=== PATIENT | male | born 1975 | race African-American/Black ===

== ENCOUNTER 2016-12-23 01:59 | Emergency (ER) | payer OTHER ==
[~2016-12-23] VITALS: Ht 175.3 cm; Wt 107.6 kg
[2016-12-23 02:07] VITALS: Ht 175.3 cm; Wt 107.6 kg
--- NOTE | 2016-12-23 03:06 | ERA ---
ER Documentation Chief Complaint Date/Time DATE: 12/23/16 TIME: 03:05 Chief Complaint states can't sleep HPI The patient is a 41-year-old male, presenting to the ER because of insomnia, anxiety. He denies auditory, visual hallucination, homicidal, suicidal ideation. He denies neck pain, chest pain, dyspnea, abdominal pain, vomiting, diarrhea, constipation ; he does not smoke, drink or do illegal Past medical history: Hypertension, anxiety, schizophrenia Past surgical history: None ROS All systems reviewed and are negative except as per history of present illness. Medications Home Meds Reported Medications [none] No Conflict Check 06/12/13 Allergies Allergies: Coded Allergies: No Known Allergies (Verified Allergy, Unknown, 12/23/16) PMhx/Soc Medical and Surgical Hx: pt denies Surgical Hx History of Surgery: No Hx Neurological Disorder: No Hx Respiratory Disorders: No Hx Cardiac Disorders: Yes (HTN) Hx Psychiatric Problems: Yes (DEPRESSION, ANXIETY) Hx Miscellaneous Medical Probl: Yes (ABDOMINAL CYST) Hx Alcohol Use: Yes (OCCASSIONAL) Hx Substance Use: No Hx Tobacco Use: No Smoking Status: Never smoker Physical Exam Vitals Vital Signs Date Time Temp Pulse Resp B/P Pulse Ox O2 Delivery O2 Flow Rate FiO2 12/23/16 05:00 98.5 95 18 163/94 95 Room Air 12/23/16 02:49 98.6 102 20 180/100 98 Room Air 12/23/16 02:07 98.7 101 20 185/90 97 Physical Exam Const: No acute distress. Head: Atraumatic. Eyes: Normal Conjunctiva. ENT: Normal External Ears, Nose and Mouth. Neck: Full range of motion. No meningismus. Resp: Clear to auscultation bilaterally. Cardio: Regular rate and rhythm, no murmurs. Abd: Soft, non distended, normal bowel sounds, non tender. Skin: No petechiae or rashes. Back: No midline or flank tenderness. Ext: No cyanosis, or edema. Neur: Awake and alert. No focal deficit Psych: Anxious. Procedures/MDM MEDICAL MAKING DECISION: The patient is a 41-year-old male, presenting with acute anxiety, chronic insomnia. The differential diagnoses considered include but are not limited to decompensated psychiatric illness, anxiety attack, panic attack Departure Diagnosis: Primary Impression: Acute anxiety Condition: Good Comments I discussed the findings with the patient. I advised the patient to follow-up with the primary physician in about 1-2 days, sooner if needed and return if any concern. ALISHA YOO MD Dec 23, 2016 03:06
--- NOTE | 2016-12-23 03:31 | RADRPT ---
PROCEDURE: CHEST - 1 VIEW CLINICAL INDICATION: 41-year-old male with cough. TECHNIQUE: A single frontal semi-upright view of the chest was performed portably. The images wer e reviewed on a PACS workstation. COMPARISON: None. FINDINGS: The cardiomediastinal silhouette is within normal limits. There is a shallow inspiration. There is no evidence for an infiltrate. There is no evidence for congestive heart failure. There is no evid ence for pneumothorax. The osseous structures are intact. IMPRESSION: No evidence for active cardiopulmonary disease. .Garrett Curry MD, MD Date Time Electronically viewed and signed by .Garrett Curry MD, on 12/23/2016 03:31 .Deon/
[2016-12-23 05:00] VITALS: BP 163/94; PULSE 95; RESP 18; TEMP 98.5
== END 2016-12-23 05:02 | disposition home or self-care (01) ==
LOC: E/R 01:59
DX: F41.9 Anxiety disorder, unspecified (principal); I10 Essential (primary) hypertension
CPT/HCPCS: 71010; Z7502

== ENCOUNTER 2017-01-17 10:55 | Inpatient (IN) | payer OTHER ==
--- NOTE | 2017-01-16 15:23 | HP ---
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 He presents to the hospital a very large spindle cell tumor, CD34 positive. He will require large local excision. Both the patient and the patient's brother understand the risk of surgery to include but not exclusive to: Bleeding, infection, drain placement, split-thickness skin graft, excision of abdominal wall, repeat surgery, recurrent tumor mass, neuropathy, disfiguring scar. They request to proceed with excision of abdominal wall mass. HPI/ROS Admit Date/Time Admit Date/Time 01/16/17 Hx of Present Illness This is a 41-year-old gentleman. He is mentally retarded. He lives with his brother. According to his brother's account the patient approximately 2-1/2 years ago started developing a mass on his abdominal wall. It was excised partially at that time. The patient was lost to follow-up. He was reevaluated and a biopsy was obtained. The biopsy was positive for spindle cell CD34 tumor. The patient was scheduled for an excisional of the mass but the case was canceled. The patient initially followed up in our clinic in June 2016. His surgery was delayed due to need for hypertension control. A CT scan performed in August 2016 notes the abdominal wall mass. It does not appear to extend into the muscles of the abdominal wall. There is no lymphadenopathy noted. The pathology results and the biopsy are dated February 2016 which noted a spindle cell proliferation. Immunostain showed tumor cells are positive for CD34, focal positive for CD68, CD 163, and factor XIII A. 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 The patient and his brother have had the surgery discussed with them. They understand that this would require a large excision. The recurrence risk is high. That he may return to the operating room for excision of positive margins. Possible excision of portion of abdominal wall with repair with mesh. Possible split-thickness skin graft. Possible wound VAC placement. Other risks include infection, bleeding, chronic pain syndrome. The patient will have a disfiguring scar. All question answered the patient and family request to proceed. ROS Hypertension No SOB, no chest pain Nl gait Constitutional: no complaints Eyes: no complaints ENT: no complaints Respiratory: no complaints Cardiovascular: no complaints Gastrointestinal: no complaints Musculoskeletal: no complaints Skin: other (see HPI) Psychological: no complaints Exam/Review of Systems Exam Constitutional: alert, oriented, well developed (mild obesity) Psych: no complaints Head: atraumatic, normocephalic Eyes: EOMI, nl conjunctiva ENMT: nl external ears & nose Neck: supple Respiratory: clear to auscultation, normal air movement Cardiovascular: regular rate and rhythm Gastrointestinal: other (tumor growth 17 x 9 cm), soft Musculoskeletal: nl extremities to inspection Extremities: normal pulses Neurological: LEAD BURNER II-XII intact, nl mental status (mentally delayed) BASILIA WALDEN M.D. Jan 16, 2017 15:18
[2017-01-17] VITALS (24 sets, daily range): BP systolic 111–170; BP diastolic 71–110; PULSE 54–79; RESP 7–24; Ht 175.3 cm; Wt 102.0 kg
[~2017-01-17] VITALS: Ht 175.3 cm; Wt 102.0 kg
[~2017-01-17 10:55] MED LIST: CEFAZOLIN 1 GM INJ ONE; DESFLURANE 15 MIN ONE; ONDANSETRON 4 MG INJ ONE
[2017-01-17] MEDS ORDERED: CEFAZOLIN 2 GM/50 ML (PMX) 50 ML IVPB ONE (11:00)
[2017-01-17] MEDS ORDERED: UNKOWN HTN RX (11:40)
[2017-01-17 12:22] LABS: ADD SCAN DIFF NO
[2017-01-17 12:26] LABS: BASOPHILS % 0.6 % (0.0-2.0); EOSINOPHILS # 0.2 10^3/ul (0.0-0.5); EOSINOPHILS % 3.3 % (0.0-7.0); HEMOGLOBIN 13.1 g/dl (14.0-18.0); LYMPHOCYTES # 1.4 10^3/ul (0.8-2.9); LYMPHOCYTES % 19.8 % (15.0-51.0); MEAN CORPUSCULAR HEMOGLOBIN 27.7 pg (29.0-33.0); MEAN CORPUSCULAR VOLUME 86.7 fl (82.0-101.0); MEAN PLATELET VOLUME 11.3 fl (7.4-10.4); MONOCYTE # 0.5 10^3/ul (0.3-0.9); MONOCYTES % 7.6 % (0.0-11.0); NEUTROPHIL # 4.7 10^3/ul (1.6-7.5); NEUTROPHILS % 68.4 % (39.0-77.0); PLATELET COUNT 259 10^3/UL (140-415); RED BLOOD COUNT 4.73 10^6/ul (4.70-6.10); RED CELL DISTRIBUTION WIDTH 14.6 % (11.5-14.5); WHITE BLOOD COUNT 6.9 10^3/ul (4.8-10.8)
[2017-01-17] MEDS ORDERED: MINERAL OIL LIGHT 10 ML VIAL ONE (12:32)
[2017-01-17 12:44] LABS: ALBUMIN 4.2 g/dl (3.3-4.9)
[2017-01-17 12:46] LABS: POTASSIUM 4.1 mmol/L (3.5-5.1)
[2017-01-17 12:47] LABS: ALBUMIN/GLOBULIN RATIO 1.1; BILIRUBIN,INDIRECT 0.7 mg/dl (0-1.1); BILIRUBIN,TOTAL 0.7 mg/dl (0.2-1.3)
[2017-01-17 12:55] LABS: CALCIUM 9.1 mg/dl (8.4-10.2); CREATININE 0.97 mg/dl (0.61-1.24)
[2017-01-17] MEDS ORDERED: MEPERIDINE 25 MG INJ IV PRN (13:00)
[2017-01-17] MEDS ORDERED: HYDROmorphONE (0.2 MG/ML) 10ML SYG IV PRN ×2 (13:00)
[2017-01-17] MEDS ORDERED: hydrALAzine 20 MG INJ IV PRN (13:00)
[2017-01-17] MEDS ORDERED: EPHEDrine SULFATE 50 MG/5 ML SYG IV PRN (13:00)
[2017-01-17] MEDS ORDERED: LABETALOL HCL 20MG INJ IV PRN (13:00)
[2017-01-17] MEDS ORDERED: ONDANSETRON 4 MG INJ IV PRN ×2 (13:00→15:30)
[2017-01-17] MEDS ORDERED: FENTAnyl 50 MCG/ML VIAL IV PRN ×3 (13:00)
[2017-01-17] MEDS ORDERED: ROCURONIUM 50 MG INJ ONE (13:04)
[2017-01-17] MEDS ORDERED: PROPOFOL 20 ML ONE (13:05)
[2017-01-17] MEDS ORDERED: LIDOCAINE 2% (SDV) 5 ML INJ ONE (13:05)
--- NOTE | 2017-01-17 13:08 | HPN ---
Date/Time of Note Date/Time of Note DATE: 01/17/17 TIME: 13:07 Interval H&P Admission Note Pt. seen H&P reviewed: No system changes BASILIA WALDEN M.D. Jan 17, 2017 13:07
[2017-01-17] MEDS ORDERED: LABETALOL HCL 20MG INJ ONE ×2 (13:27→14:52)
[2017-01-17] MEDS ORDERED: ACETAMINOPHEN 1000MG/100ML IV 100 ML ONE (13:32)
[2017-01-17] MEDS ORDERED: DEXAMETHASONE 4 MG/ML 1 ML INJ ONE (13:44)
[2017-01-17] MEDS ORDERED: BUPIVACAINE 0.5% (SDV) 30 ML INJ ONE (14:26)
[2017-01-17] MEDS ORDERED: BACITRACIN/POLYMYXIN 28.35 GM OINT TOP ONE (14:27)
[2017-01-17] MEDS ORDERED: BUPIVACAINE 0.5% 30 ML VIAL INJ ONE (14:36)
[2017-01-17] MEDS ORDERED: BACITRACIN/POLYMYXIN 0.9 GM OINT TOP ONE (14:45)
--- NOTE | 2017-01-17 15:00 | OPR ---
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 Surgeon: BASILIA WALDEN M.D. Anesthesia: general Anesthesiologist: CECE ARAGON Estimated Blood Loss: 50 - 100 ml's Specimens Abdominal wall with tumor mass Tubes/Drains Gvain drain 1 Complications: None Pt Condition Post Procedure: stable Disposition: PACU Indications This is a 41-year-old male with a large spindle cell tumor of the abdominal wall. It requires excision Operative\Procedure Findings The patient's tumor was excised with a 2 cm margin. Including the margin a 25 x 15 cm excision of the abdominal wall was performed. Blue suture marked the superior border, black suture marking the right border. Gross examination of the specimen with the pathologist noted no gross disease at the margins. Procedure Description The patient was marked in the preop hold area. The patient was brought in the operating room. The patient was intubated. The patient was prepped and draped. A full timeout was performed. The excision margins were marked 2 cm beyond the edge of the tumor. Then using a scalpel the skin incision was made. Dissection continued down to the fascia with electrocautery. The tumor was then removed from the abdominal wall with electrocautery. The fascia was a posterior margin. The fascia remained intact. Prior to complete excision the tumor was marked with sutures. Once the tumor was removed the pathologist was called in the room and the specimen was handed off. The area was irrigated with sterile water. Hemostasis was checked. Flaps were developed both cranially and caudally. There are approximately 5 cm. We could not descend beyond 5 cm caudally to the umbilicus. Then a 19 Gavin drain was placed in the lower portion of the wound. It came out the right abdominal wall and sutured in place with 0 silk. The initial reapproximation of flap was then performed using interrupted 0 chromic sutures that included 1 portion of Carlos's fascia a small portion of anterior rectus sheath, and a small portion of the Carlos's fascia on the abutting side. This pulled the wound edges together. Following that a superficial layer of interrupted 0 chromic sutures was placed. Then the midline of the wound was reapproximated with interrupted #1 nylon sutures. There was a 4 cm section midline which was under tension. But I felt it was better to place this under tension to do a split-thickness skin graft. Even if he had small necrosis of skin and most likely just heal. And we can avoid a split-thickness skin graft. Once we had 8 cm of interrupted sutures, the remaining skin was reapproximated using a running 2-0 nylon suture. This layer was placed without tension. 0.5% Marcaine was infiltrated in the area. The sterile dressing was applied. The patient will have an abdominal binder applied. Sponge and needle count report is correct and the procedure. BASILIA WALDEN M.D. Jan 17, 2017 15:00
[2017-01-17] MEDS: HYDROmorphONE (0.2 MG/ML) 10ML SYG IV PRN ×2 (15:20→15:32)
[2017-01-17] MEDS ORDERED: morphine 2 MG INJ IV PRN (15:30)
[2017-01-17] MEDS ORDERED: CEPASTAT LOZENGE MT PRN (15:30)
[2017-01-17] MEDS ORDERED: IBUPROFEN 600 MG TAB PO PRN (15:30)
[2017-01-17] MEDS ORDERED: KETOROLAC 30 MG INJ IV PRN (15:30)
[2017-01-17] MEDS ORDERED: DIPHENHYDRAMINE 25 MG CAP PO PRN (15:30)
[2017-01-17] MEDS ORDERED: HYDROCODONE/APAP (5/325) TAB PO PRN (15:30)
[2017-01-17] MEDS ORDERED: NACL 0.9% 3 ML SYG IV SCH (15:30)
[2017-01-17] MEDS ORDERED: DIPHENHYDRAMINE 50 MG INJ IV PRN (15:30)
[2017-01-17] MEDS ORDERED: HYDROCODONE/APAP (10/325) TAB PO PRN (15:30)
[2017-01-17] MEDS ORDERED: CEFAZOLIN 2 GM/50 ML (PMX) 50 ML IVPB SCH (15:30)
[2017-01-17] MEDS ORDERED: ACETAMINOPHEN 325 MG TAB PO PRN (15:30)
[2017-01-17] MEDS: CEFAZOLIN 2 GM/50 ML (PMX) 50 ML IVPB SCH (21:05)
[2017-01-17] MEDS: METOPROLOL 25 MG TAB PO SCH (21:06)
[2017-01-17] MEDS: D5-NS + KCL 20 MEQ 1,000 ML IV SCH (21:11)
[2017-01-18] MEDS: CEFAZOLIN 2 GM/50 ML (PMX) 50 ML IVPB SCH ×2 (05:10→14:27)
[2017-01-18 05:18] LABS: ADD SCAN DIFF NO
[2017-01-18 05:24] LABS: BASOPHILS % 0.1 % (0.0-2.0); EOSINOPHILS % 0.1 % (0.0-7.0); HEMATOCRIT 35.1 % (42.0-52.0); HEMOGLOBIN 11.4 g/dl (14.0-18.0); LYMPHOCYTES # 1.1 10^3/ul (0.8-2.9); LYMPHOCYTES % 8.8 % (15.0-51.0); MEAN CORPUSCULAR HEMOGLOBIN 28.1 pg (29.0-33.0); MEAN CORPUSCULAR HGB CONC 32.5 g/dl (32.0-37.0); MEAN CORPUSCULAR VOLUME 86.5 fl (82.0-101.0); MEAN PLATELET VOLUME 11.8 fl (7.4-10.4); MONOCYTE # 1.1 10^3/ul (0.3-0.9); NEUTROPHIL # 9.9 10^3/ul (1.6-7.5); NEUTROPHILS % 81.5 % (39.0-77.0); PLATELET COUNT 247 10^3/UL (140-415); RED BLOOD COUNT 4.06 10^6/ul (4.70-6.10); RED CELL DISTRIBUTION WIDTH 14.7 % (11.5-14.5); WHITE BLOOD COUNT 12.2 10^3/ul (4.8-10.8)
[2017-01-18] MEDS: ENOXAPARIN 40 MG/0.4 ML SYG SC SCH (06:35)
--- NOTE | 2017-01-18 07:20 | PDOCDIS ---
Discharge Instructions DIAGNOSIS Discharge Diagnosis: Abdominal wall tumor CONDITION Patient Condition: Good HOME CARE INSTRUCTIONS: Diet Instructions: Regular ACTIVITY: Activity Restrictions: Avoid Heavy Housework Weight Bearing (No more than 10 pounds) Bathing Restrictions: Monitor drain output FOLLOW UP/APPOINTMENTS Appointments Call Dr. Stewart's office for appointment on Sunday, on Sunday we will remove all drains and Schmitt catheter. BASILIA STEWART M.D. Jan 18, 2017 07:20
[2017-01-18] MEDS ORDERED: BACITUD TOP (07:23)
[2017-01-18] MEDS ORDERED: HYDR-3498 PO (07:23)
[2017-01-18 08:06] VITALS: BP 148/93; RESP 16
[2017-01-18] MEDS: METOPROLOL 25 MG TAB PO SCH ×2 (09:47→21:20)
[2017-01-18] MEDS: BACITRACIN 0.9 GM OINT TOP SCH (10:14)
--- NOTE | 2017-01-18 10:35 | RADRPT ---
Vent Rate: 70 bpm RR Interval: 0 msec DE Interval: 154 msec QRS Duration: 100 msec QT Interval: 378 msec QTC Interval: 408 msec P-R-T [place]: 50 - 60 - 4 degrees Normal sinus rhythm Nonspecific T wave abnormality Abnormal ECG Electronically Signed By: Kameron Xavier [id number]
[2017-01-18] MEDS: D5-NS + KCL 20 MEQ 1,000 ML IV SCH (11:01)
--- NOTE | 2017-01-18 21:16 | EN ---
Date/Time of Note Date/Time of Note DATE: 01/18/17 TIME: 21:06 Event Note Surgery Surgery Event Note Patient is having difficulty with ambulation, D/C held for 24 hours for PT and home health care arrangement if possible. BASILIA WALDEN M.D. Jan 18, 2017 21:16
[2017-01-19] MEDS: ENOXAPARIN 40 MG/0.4 ML SYG SC SCH (06:39)
[2017-01-19 07:40] VITALS: BP 138/92; RESP 18
[2017-01-19] MEDS: METOPROLOL 25 MG TAB PO SCH (08:41)
--- NOTE | 2017-01-19 09:45 | DS ---
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 He is mentally retarded. He lives with his brother. According to his brother's account the patient approximately 2-1/2 years ago started developing a mass on his abdominal wall. It was excised partially at that time. The patient was lost to follow-up. He was reevaluated and a biopsy was obtained. The biopsy was positive for spindle cell CD34 tumor. The patient was scheduled for an excisional of the mass but the case was canceled. The patient initially followed up in our clinic in June 2016. His surgery was delayed due to need for hypertension control. A CT scan performed in August 2016 notes the abdominal wall mass. It does not appear to extend into the muscles of the abdominal wall. There is no lymphadenopathy noted. The pathology results and the biopsy are dated February 2016 which noted a spindle cell proliferation. Immunostain showed tumor cells are positive for CD34, focal positive for CD68, CD 163, and factor XIII A. 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 The patient and his brother have had the surgery discussed with them. They understand that this would require a large excision. The recurrence risk is high. That he may return to the operating room for excision of positive margins. Possible excision of portion of abdominal wall with repair with mesh. Possible split-thickness skin graft. Possible wound VAC placement. Other risks include infection, bleeding, chronic pain syndrome. The patient will have a disfiguring scar. All question answered the patient and family request to proceed. Hospital Course Patient was admitted to the hospital. He underwent excision of the spindle cell tumor of the abdominal wall. Postoperatively the patient had urinary retention. Required an additional day in the hospital for physical therapy. He is now tolerating a regular diet and will take a shower today. He will be discharged later on this afternoon. His Schmitt will be DC'd today. Home Meds Active Scripts Hydrocodone Bit-Acetaminophen (Hydrocodone Bit-APAP) 5-325MG Tablet, 1-2 TAB PO Q4H Y for PAIN LEVEL 6-10, #40 TAB 0 Refills Prov:BASILIA STEWART M.D. 01/18/17 Bacitracin* (Bacitracin Oint (UD)*) 1 Applic Oint, 1 APPLIC TOP DAILY, #1 TUB 3 Refills Prov:BASILIA STEWART M.D. 01/18/17 Reported Medications [Unkown Htn Rx] No Conflict Check PER PT NON COMPLAINT WITH HTN RXHASN'T BEEN TAKING HIS HTN RX DAILY PER PT 01/17/17 Discontinued Reported Medications [none] No Conflict Check 06/12/13 Follow-up Plan Patient will follow with Dr. Stewart on Sunday. BASILIA STEWART M.D. Jan 19, 2017 09:45
[2017-01-19] MEDS: BACITRACIN 0.9 GM OINT TOP SCH (11:00)
== END 2017-01-19 19:00 | disposition home or self-care (01) | DRG 578 ==
LOC: SDS 10:55 → EDSTATUS 13:00 → MS1 15:11 → SDS 15:11 → MS1 16:10
PROVIDERS: ADMIT Surgery Trauma Surgery; ATTEND Surgery Trauma Surgery
PROC: 0HX7XZZ Transfer Abdomen Skin, External Approach (ICD-10-PCS; 2017-01-17)
PROC: 0HB7XZZ Excision of Abdomen Skin, External Approach (ICD-10-PCS; principal; 2017-01-17 13:00)
DX: C44.599 Other specified malignant neoplasm of skin of other part of trunk (principal); I10 Essential (primary) hypertension; F79 Unspecified intellectual disabilities; E66.9 Obesity, unspecified; Z68.33 Body mass index [BMI] 33.0-33.9, adult; R33.9 Retention of urine, unspecified
CPT/HCPCS: 80053; 85025; 86850; 86900; 86901; 88307; 93005; J0131; J0690; J1100; J1170; J1650; J1885; J2405; J3010; J3480